=== PATIENT | female | born 1955 | race Two or more races ===

== ENCOUNTER → 2016-06-27 | Outpatient (CLI) | payer OTHER | END | disposition home or self-care (01) | LOC: RAD 11:16 | PROVIDERS: ATTEND Family Medicine | DX: M50.322 Other cervical disc degeneration at C5-C6 level (principal); M41.85 Other forms of scoliosis, thoracolumbar region; M48.03 Spinal stenosis, cervicothoracic region; M51.36 Other intervertebral disc degeneration, lumbar region; M48.06 Spinal stenosis, lumbar region; G89.29 Other chronic pain | CPT/HCPCS: 72040; 72072; 72100 ==